=== PATIENT | male | born 1990 | race Caucasian/White ===

== ENCOUNTER 2016-05-20 12:57 | Emergency (ER) | payer SELFPAY ==
[~2016-05-20] VITALS: Ht 190.5 cm; Wt 96.0 kg
[2016-05-20 13:18] VITALS: BP 141/93; PULSE 93; RESP 17; TEMP 99.3; O2SAT 96
--- NOTE | 2016-05-20 16:58 | PD ---
HPI Chief Complaint: Cold / Flu Symptoms Time Seen by Provider: 16:53 Travel History International Travel<30 days: No Contact w/Intl Traveler<30days: No Traveled to known affect area: No History of Present Illness HPI Patient comes in for evaluation complaining of sinus congestion and pressure ongoing for approximately 3 weeks. Denies any known fevers. Patient has been using [id number] cold and flu medication for symptomatic relief that was helping some. Patient had associated sore throat and intermittent dry nonproductive cough. Patient denies being around anyone else sick. Denies any chest pain, shortness of breath, nausea, abdominal pain, or known fevers. Patient reports he did have a little bit of vomiting and diarrhea for little over a week ago that has since resolved. PFSH Past Medical History Cancer: No Diabetes: No Diminished Hearing: No Endocrine: No Genitourinary: Yes (ULCER) Headaches: Yes (PT STATES, "MIGRAINES") Hepatitis: No Immune Disorder: No Medical other: Yes (MIGRAINES) Musculoskeletal: Yes (SCOLIOSIS. SPINA BIFIDA, BULGING DISCS, CHRONIC SHOULDER PAIN) Psychiatric: No Immunizations Current: No Migraines: Yes (CHRONIC) Thyroid Disease: No Past Surgical History AICD: No Joint Replacement: No Pacemaker: No Other Surgery: No Social History Alcohol Use: Yes ([facility]) Tobacco Use: Yes (1 PPD) Substance Use: Yes ([facility]) Allergies-Medications (Allergen,Severity, Reaction): Coded Allergies: Darvocet-N 100 (Verified Allergy, Severe, Itching, 05/20/16) Darvon (Verified Allergy, Severe, Nausea/Vomiting, 05/20/16) Nubain (Verified Allergy, Severe, Swelling, 05/20/16) Toradol (Verified Allergy, Severe, Itching, 05/20/16) Codeine (Verified Allergy, Mild, Nausea/Vomiting, 05/20/16) PATIENT STATES HAS NO ALLERGY TO CODEINE Reported Meds & Prescriptions Reported Meds & Active Scripts Active Amoxicillin 875 Mg Tab 875 Mg PO BID 10 Days Review of Systems Except as stated in HPI: all other systems reviewed are Neg Physical Exam Narrative GENERAL: Well-developed, overly nourished, in no acute distress, and non-ill appearing. SKIN: Warm and dry. HEAD: Atraumatic. Normocephalic. EYES: Pupils equal and round. EOMI. No scleral icterus. No injection or drainage. ENT: No nasal bleeding or discharge. Mucous membranes pink and moist. Tympanic membranes mildly erythematous bilaterally. Posterior pharynx erythematous without exudate. Uvula is midline. Tenderness to facial sinuses to palpation. NECK: Trachea midline. No cervical lymphadenopathy. Supple. No nuclear rigidity. CARDIOVASCULAR: Regular rate and rhythm. No murmur appreciated. RESPIRATORY: No accessory muscle use. No respiratory distress. Clear to auscultation. Breath sounds equal bilaterally. MUSCULOSKELETAL: No obvious deformities. No clubbing. No cyanosis. No edema. Full range of motion. NEUROLOGICAL: Awake and alert. No obvious cranial nerve deficits. Motor grossly within normal limits. Normal speech. PSYCHIATRIC: Appropriate mood and affect; insight and judgment normal. Data Data Last Documented VS Vital Signs Date Time Temp Pulse Resp B/P Pulse Ox O2 Delivery O2 Flow Rate FiO2 05/20/16 13:18 99.3 93 17 141/93 96 MDM Medical Decision Making Medical Screen Exam Complete: Yes Emergency Medical Condition: Yes Differential Diagnosis Upper respiratory infection, bronchitis, sinusitis, strep pharyngitis, viral syndrome, other Narrative Course Patient looks great, non-ill appearing. The patient is tolerating fluids and is well hydrated. Appears acute sinusitis. No clinical evidence by history or evaluation to suspect meningitis and/or sepsis. There was no evidence to suggest deep abscess or cavernous sinus involvement. I discussed with the patient, diagnosis, plan of care, medications and to follow up with the patient s primary physician. The patient was instructed to return if the worsens in anyway, especially if not tolerating fluids, increased sinus pain or swelling, worsening headache, persistent fever, difficulty swallowing or breathing, or as needed. The patient agreed with plan. Patient in no obvious distress upon re-evaluation. Patient was asked if they wanted to speak to my attending, which the patient did not wish to do at this time. Any questions/concerns in reference to patient diagnosis/condition discussed and clarified prior to patient's discharge. Reinforced sheer importance of close follow up with patient's primary physician or primary care clinic. Instructed patient to return to ED immediately, if symptoms return/ worsen. Pt showed understanding of above instructions. Further instructions and recommendations were detailed in discharge paperwork. Pt ambulated without difficulty out of ED at discharge. Diagnosis Primary Impression: Sinusitis Qualified Code: J01.90 - Acute sinusitis, recurrence not specified, unspecified location Patient Instructions: General Instructions, Sinusitis (ED) Departure Forms: Work Release Enter return to work date: May 22, 2016 Additional Instructions: Follow-up with your primary care physician in 3-5 days for reevaluation. Take all medication as prescribed. Drink plenty of non-caffeinated and nonalcoholic fluids. Return to the emergency department if symptoms get worse. Med/Other Pt SpecificInfo: Prescription(s) given Scripts Amoxicillin 875 Mg Foq173 Mg PO BID 10 Days Ref 0 Prov:Gaby Archer MD 05/20/16 Disposition: 01 DISCHARGE HOME Condition: Stable Suleman Thompson May 20, 2016 16:58
[2016-05-20] MEDS ORDERED: AMOX875T PO (16:59)
== END 2016-05-20 17:04 | disposition home or self-care (01) ==
LOC: PHED 12:57 → PHEFT 17:04
DX: J01.90 Acute sinusitis, unspecified (principal); Q05.9 Spina bifida, unspecified; F17.210 Nicotine dependence, cigarettes, uncomplicated; F12.90 Cannabis use, unspecified, uncomplicated
CPT/HCPCS: 99283